=== PATIENT | female | born 1950 | race Caucasian/White ===

== ENCOUNTER → 2016-12-28 11:03 | Outpatient (CLI) | payer MEDICARE, BC | END | disposition home or self-care (01) | LOC: D.CT 11:03 | DX: F07.81 Postconcussional syndrome (principal); R51 Headache ==

== ENCOUNTER 2017-01-04 17:30 | Observation (INO) | payer MEDICARE, BC ==
[~2017-01-04] VITALS: Ht 160 cm; Wt 88.5 kg
[~2017-01-04 17:30] MED LIST: FUROSEMIDE40 MG PO
[2017-01-04 19:28] LABS: BASOPHILS 0.5 % (0-2); EOSINOPHILS 1.1 % (0-7); HEMATOCRIT 38.5 % (36.0-48.0); HEMOGLOBIN 13.1 g/dL (12-16); IMMATURE GRANULOCYTES 0.2 % (0-5); LYMPHOCYTES 21.9 % (15-50); MCH 30.8 pg (26.0-34.0); MCV 90.4 fL (80.0-100.0); MEAN PLATELET VOLUME 10.6 fL (7.4-10.4); MONOCYTES 13.6 % (2-11); NEUTROPHILS 62.7 % (40-80); PLATELET COUNT 235 10x3/uL (130-400); RBC 4.26 10x6/uL (4.00-5.40); RDW 13.7 % (11.5-14.5); WBC 9.6 10x3/uL (4.8-10.8)
[2017-01-04 19:31] LABS: INR 2.3 (0.85-1.17); PROTIME 25.4 SECONDS (11.6-15.0)
[2017-01-04 19:44] LABS: ALBUMIN 3.9 g/dL (3.4-5.0); ANION GAP 12.6 mmol/L (8-16); BILIRUBIN - TOTAL 0.54 mg/dL (0.2-1.3); CALCIUM 9.5 mg/dL (8.5-10.1); CARBON DIOXIDE 30.8 mmol/L (21.0-32.0); CREATININE - SERUM 2.1 mg/dL (0.6-1.3); POTASSIUM - SERUM 3.4 mmol/L (3.5-5.1); PROTEIN - SERUM 8.4 g/dL (6.4-8.2)
[2017-01-04 22:43] VITALS: BP 143/72; Ht 160 cm; Wt 88.5 kg
--- NOTE | 2017-01-04 23:15 | NUR ---
66 yr old female admitted from ED to [facility] 2 via bed. FULL Code Status, alert and oriented x 4, admitted under services of for observation. Fell when trying to break up a fight between two of her dogs, was tripped by a leash. Hit the right side of her forehead. Has minor scrapes and bruises on both arms and mid right east. Sustained two fractured toes, has ortho walking boot on right lower leg and foot. States she had to put one of the dogs down. Depressed, has been taking antidepressants since her last February. Denies suicidal ideation. Does take coumadin and ASA at home. Denies pain or discomfort at this time, will continue to monitor. Has PIV in right forearm #20 that is SL.
[2017-01-04] MEDS ORDERED: PROTONIX40 MG PO (23:49)
[2017-01-04] MEDS ORDERED: MOBIC7.5 MG PO (23:52)
[2017-01-04] MEDS ORDERED: LEVOTHYROXINE75 MCG PO (23:55)
[2017-01-04] MEDS ORDERED: CELEXA20 MG PO (23:57)
[2017-01-04] MEDS ORDERED: COUMADIN2.5 MG PO (23:59)
[2017-01-05] MEDS ORDERED: NORVASC5 MG PO (00:05)
[2017-01-05] MEDS ORDERED: CORDARONE200 MG PO (00:09)
[2017-01-05] MEDS ORDERED: DIOVAN HCT 320/1 TA2 PO (00:12)
[2017-01-05] MEDS ORDERED: DESERYL100 MG PO (00:14)
[2017-01-05] MEDS ORDERED: XANAX0.25 MG PO (00:18)
--- NOTE | 2017-01-05 02:10 | NUR ---
Patient in bed with eyes closed, deemed to be sleeping, respirations unlabored.
[2017-01-05 04:00] VITALS: BP 122/54
--- NOTE | 2017-01-05 05:15 | NUR ---
awake overnight monitor on, rhythm SB, current HR = 52/min. Continues to sleep, respirations easy and regular, color normal fleshtone. No signs of respiratory distress, usually sleeps with CPAP.
--- NOTE | 2017-01-05 07:30 | NUR ---
AM ROUNDS COMPLETED. PT RESTING QUIETLY IN BED PLAYING ON HER CELL PHONE. PT A&O AND STATES SHE IS FEELING WELL BUT HAS SLIGHT HEADACHE. PT HAS A R.FA PIV WITH DRSG CDI AND SWAB CAPS IN USE. PT HAS AN ORTHO BOOT TO HER RIGHT FOOT THAT IS IN PLACE AND DOESNT REQUIRE ANY NEEDS. PT DENIES ANY CURRENT NEEDS AND IS WAITING TO HEAR FROM THE DOCTORS. CL IN REACH, BED IN LOWEST, SIDE RAILS X2. WILL CPOC.
[2017-01-05 08:00] VITALS: BP 130/63
--- NOTE | 2017-01-05 11:00 | NUR ---
PT LEAVING UNIT FOR MRI VIA WHEELCHAIR. DENIES ANY CURRENT NEEDS. WILL CPOC.
[2017-01-05 12:00] VITALS: BP 111/46
--- NOTE | 2017-01-05 12:00 | NUR ---
PT BACK FROM MRI AND READY TO EAT LUNCH.
[2017-01-05 16:00] VITALS: BP 103/51
--- NOTE | 2017-01-05 17:08 | NUR ---
CT CALLED AND UNABLE TO PERFORM CTA R/T CREATNINE TOO HIGH @2.1 CALLED AND HE IS OKAY WITH DISCHARGING PT AND DOING OUTPATIENT IF STILL NEEDED. MRI CLEAR AND NO STROKE INDICATED. PT READY TO BE DISCHARGED AND STATES SHE FEELS FINE. D/C PTS R.FA PIV WITH CATHETER TIP FULLY INTACT. TELEMETRY REMOVED AND RETURNED TO [facility]. PT COLLECTING BELONGINGS AND DENIES ANY FURTHER NEEDS AT THIS TIME.
--- NOTE | 2017-01-05 19:06 | NUR ---
RIGHT FOREARM IV REMOVED WITH CATH INTACT. COVERED WITH BANDAID AND PRESSURE APPLIED. PT DENIES ANY NEEDS. IS READY TO BE D/C. PT DENIES ANY QUESTIONS. NO S/S OF DISTRESS. WILL CPOC
--- NOTE | 2017-01-05 20:03 | NUR ---
PT D/C INSTRUCTIONS COMPLETED. PT VERBALIZED UNDERSTANDING AND DENIES ANY QUESTIONS. PT DOWN TO CAR VIA WHEELCHAIR WITH FAMILY.
== END 2017-01-05 20:04 | disposition home or self-care (01) ==
LOC: OBSVTIME → D.ER 17:30 → OBSVTIME 20:21 → D.ER 20:21 → D.M2 20:21
PROVIDERS: Nurse Practitioner Family; ADMIT Family Medicine
DX: S92.341A Displaced fracture of fourth metatarsal bone, right foot, initial encounter for closed fracture (principal); S92.351A Displaced fracture of fifth metatarsal bone, right foot, initial encounter for closed fracture; W18.39XA Other fall on same level, initial encounter; M54.2 Cervicalgia; R93.0 Abnormal findings on diagnostic imaging of skull and head, not elsewhere classified; S00.93XA Contusion of unspecified part of head, initial encounter